=== PATIENT | female | born 2000 | race Two or more races ===

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

== ENCOUNTER 2021-03-04 19:18 | Emergency (ER) | payer OTHER ==
[~2021-03-04] VITALS: Ht 149.9 cm; Wt 34.0 kg
[~2021-03-04 19:18] MED LIST: ZOFRAN8 MG PO
== END 2021-03-04 23:45 | disposition home or self-care (01) ==
LOC: EMR PED 19:18 → ER 19:18 → EMR PED 23:12
DX: S09.8XXA Other specified injuries of head, initial encounter (principal); V49.88XA Car occupant (driver) (passenger) injured in other specified transport accidents, initial encounter; Y92.410 Unspecified street and highway as the place of occurrence of the external cause

== ENCOUNTER 2023-05-30 12:01 | Emergency (ER) | payer OTHER ==
[~2023-05-30] VITALS: Ht 154.9 cm; Wt 38.6 kg
[2023-05-30 15:37] LABS: HEMATOCRIT 39.1 % (36.0-45.00); HEMOGLOBIN 13.3 g/dL (12.0-15.00); MEAN CELL VOLUME 91.4 fL (80.00-100.00); MEAN CORPUSCULAR HEMOGLOBIN 31.2 pg (27.00-32.0); MEAN CORPUSCULAR HGB CONC 34.1 g/dl (32.0-36.0); PLATELET COUNT 183 K/uL (150-450); RED BLOOD COUNT 4.28 M/uL (4.00-6.00); RED CELL DISTRIBUTION WIDTH 12.6 % (11.5-14.5)
[2023-05-30 15:37] LABS: URINE APPEARANCE Clear; URINE BACTERIA 132.2 uL (0.0-1933); URINE BILIRRUBIN Negative (NEGATIVE); URINE BLOOD Moderate; URINE COLOR Yellow; URINE GLUCOSE Negative (NEGATIVE); URINE LEUKOCYTE Negative; URINE NITRATE Negative; URINE PROTEIN Negative (NEGATIVE); URINE RBC 20.5 uL (0.0-20.8); URINE UROBILINOGEN 0.2 E.U./dl; URINE WBC 15.5 uL (0.0-23.2)
[2023-05-30 15:54] LABS: CALCIUM 9.3 mg/dL (8.5-10.1); CREATININE SERUM 0.72 mg/dL (0.55-1.02); GFR 102.25; POTASSIUM 3.67 mEq/L (3.5-5.1)
[2023-05-30] MEDS ORDERED: PEPCID AC20 MG PO (17:16)
[2023-05-30] MEDS ORDERED: ONDANSETRON HCL4 MG PO (17:16)
== END 2023-05-30 17:49 ==
LOC: ER 12:02
PROVIDERS: Nurse Practitioner Family
DX: R11.10 Vomiting, unspecified (principal); R19.7 Diarrhea, unspecified; R10.84 Generalized abdominal pain